=== PATIENT | female | born 1985 | race Caucasian/White ===

== ENCOUNTER 2022-04-25 14:49 | Emergency (ER) | payer BC, MEDICARE, OTHER ==
[~2022-04-25] VITALS: Ht 154.9 cm; Wt 60.3 kg
[~2022-04-25 14:49] MED LIST: ALEV220T26 PO; BACL10TA8 PO
[2022-04-25] MEDS ORDERED: CLON1TAB8 PO (15:03)
[2022-04-25] MEDS ORDERED: PRED5SOL10 PO (15:03)
[2022-04-25] MEDS ORDERED: NUED20CA PO (15:03)
[2022-04-25] MEDS ORDERED: NS 500 ML IV ONE (15:30)
[2022-04-25 16:38] LABS: BASO # 0.1 10^3/uL (0.0-0.2); BASO % 0.9 % (0.0-1.0); EOS # 0.2 10^3/uL (0.0-0.5); EOS % 3.4 % (0.0-3.0); HEMATOCRIT 40.3 % (36.0-47.0); HEMOGLOBIN 12.6 g/dl (12.0-15.5); LYMPH # 1.9 10^3/uL (1.5-5.0); LYMPH % 31.5 % (24.0-44.0); MEAN CORPUSCULAR HEMOGLOBIN 27.5 pg (27.0-33.0); MEAN CORPUSCULAR HGB CONC 31.3 g/dl (32.0-36.5); MONO # 0.5 10^3/uL (0.0-0.8); MONO % 8.5 % (2.0-8.0); NEUTROPHILS # 3.3 10^3/uL (1.5-8.5); NEUTROPHILS % 55.4 % (36.0-66.0); PLATELET COUNT, AUTOMATED 164 10^3/uL (150-450); RED BLOOD COUNT 4.58 10^6/uL (4.00-5.40); WHITE BLOOD COUNT 5.9 10^3/uL (4.0-10.0)
[2022-04-25 16:55] LABS: LIPASE 75 U/L (12-53)
[2022-04-25 16:57] LABS: ALBUMIN 3.6 G/DL (3.2-5.2); ALKALINE PHOSPHATASE 50 U/L (46-116); ALT/SGPT 30 U/L (7.0-40); AST/SGOT 29 U/L (<34); BILIRUBIN,DIRECT < 0.1 MG/DL (<0.4); BILIRUBIN,TOTAL 0.3 MG/DL (0.3-1.2); BLOOD UREA NITROGEN 10 MG/DL (9-23); CALCIUM LEVEL 9.2 MG/DL (8.5-10.1); CARBON DIOXIDE LEVEL 29 MMOL/L (20-31); CHLORIDE LEVEL 103 MMOL/L (98-107); CREATININE FOR GFR 0.69 MG/DL (0.55-1.30); GLOMERULAR FILTRATION RATE > 60.0 (>60); GLUCOSE, FASTING 75 MG/DL (60-100); POTASSIUM SERUM 4.2 MMOL/L (3.5-5.1); SODIUM LEVEL 138 MMOL/L (136-145); TOTAL PROTEIN 6.5 G/DL (5.7-8.2)
[2022-04-25 16:59] LABS: FREE T4 1.14 NG/DL (0.89-1.76); HCG, SERUM QUALITATIVE NEGATIVE (NEGATIVE); THYROID STIMULATING HORMONE 1.068 uIU/ML (0.55-4.78)
[2022-04-25 18:26] VITALS: BP 100/68
== END 2022-04-25 19:05 | disposition home or self-care (01) ==
LOC: M ED 14:49
DX: R42 Dizziness and giddiness (principal); G12.21 Amyotrophic lateral sclerosis

== ENCOUNTER 2022-06-13 16:31 | Emergency (ER) | payer MEDICARE, OTHER ==
[~2022-06-13] VITALS: Ht 157.5 cm; Wt 59.1 kg
[~2022-06-13 16:31] MED LIST changes: +CLON1TAB8 PO; +NUED20CA PO; +PRED5SOL10 PO
[2022-06-14] MEDS ORDERED: ONDANSETRON 4MG ORAL DISINTEGRATING TAB PO ONE (00:15)
[2022-06-14 00:34] LABS: BASO % 0.6 % (0.0-1.0); EOS % 0.4 % (0.0-3.0); HEMATOCRIT 45.7 % (36.0-47.0); HEMOGLOBIN 14.6 g/dl (12.0-15.5); LYMPH # 1.1 10^3/uL (1.5-5.0); LYMPH % 16.5 % (24.0-44.0); MEAN CORPUSCULAR HEMOGLOBIN 27.4 pg (27.0-33.0); MEAN CORPUSCULAR HGB CONC 31.9 g/dl (32.0-36.5); MEAN CORPUSCULAR VOLUME 85.9 fl (80.0-96.0); MONO # 0.4 10^3/uL (0.0-0.8); NEUTROPHILS # 5.1 10^3/uL (1.5-8.5); NEUTROPHILS % 76.1 % (36.0-66.0); PLATELET COUNT, AUTOMATED 202 10^3/uL (150-450); RED BLOOD COUNT 5.32 10^6/uL (4.00-5.40); WHITE BLOOD COUNT 6.7 10^3/uL (4.0-10.0)
[2022-06-14 00:57] LABS: ALBUMIN 4.5 G/DL (3.2-5.2); ALKALINE PHOSPHATASE 57 U/L (46-116); ALT/SGPT 29 U/L (7.0-40); AST/SGOT 25 U/L (<34); BILIRUBIN,DIRECT 0.2 MG/DL (<0.4); BILIRUBIN,TOTAL 0.7 MG/DL (0.3-1.2); BLOOD UREA NITROGEN 11 MG/DL (9-23); CALCIUM LEVEL 9.8 MG/DL (8.5-10.1); CARBON DIOXIDE LEVEL 26 MMOL/L (20-31); CHLORIDE LEVEL 104 MMOL/L (98-107); CREATININE FOR GFR 0.71 MG/DL (0.55-1.30); GLOMERULAR FILTRATION RATE > 60.0 (>60); GLUCOSE, FASTING 117 MG/DL (60-100); POTASSIUM SERUM 4.3 MMOL/L (3.5-5.1); SODIUM LEVEL 138 MMOL/L (136-145)
[2022-06-14] MEDS ORDERED: clonazePAM 1 MG TAB PO ONE (02:20)
[2022-06-14] MEDS ORDERED: NS 1,000 ML IV ONE (02:35)
[2022-06-14 04:30] VITALS: BP 114/80
[2022-06-14] MEDS ORDERED: traZODone 50 MG TAB PO ONE (04:45)
[2022-06-14] MEDS ORDERED: TRAZ-252 PO (04:46)
[2022-06-14] MEDS ORDERED: CLON1TAB8 PO (04:46)
== END 2022-06-14 05:04 | disposition home or self-care (01) ==
LOC: M ED 16:31
DX: F13.230 Sedative, hypnotic or anxiolytic dependence with withdrawal, uncomplicated (principal); G47.00 Insomnia, unspecified; G12.21 Amyotrophic lateral sclerosis; Z79.899 Other long term (current) drug therapy

== ENCOUNTER → 2022-11-29 | Outpatient (CLI) | payer OTHER ==
[~2022-11-29] MED LIST changes: +PRED15SO24 PO; -PRED5SOL10 PO; +TRAZ-252 PO
== END ==
LOC: M WHC 10:27
DX: Z12.31 Encounter for screening mammogram for malignant neoplasm of breast (principal); N64.9 Disorder of breast, unspecified
CPT/HCPCS: 76641; 77066; G0279

== ENCOUNTER → 2024-04-08 | Outpatient (CLI) | payer OTHER | LOC: M RAD 16:28 | PROVIDERS: ATTEND Physician Assistant | DX: J32.8 Other chronic sinusitis (principal) ==

== ENCOUNTER → 2024-04-09 | Outpatient (REF) | payer BC, OTHER ==
[2024-04-16 14:17] LABS: HPV APTIMA Not Detected (Not Detected)
== END ==
LOC: M PLALAB 16:20
PROVIDERS: ATTEND Nurse Practitioner Family
DX: Z12.4 Encounter for screening for malignant neoplasm of cervix (principal); Z11.51 Encounter for screening for human papillomavirus (HPV)
CPT/HCPCS: 87624; G0123

== ENCOUNTER → 2024-04-09 | Outpatient (CLI) | payer OTHER | LOC: M WHC 15:03 | PROVIDERS: ATTEND Nurse Practitioner Family | DX: Z12.31 Encounter for screening mammogram for malignant neoplasm of breast (principal) ==